=== PATIENT | male | born 1940 | race Caucasian/White ===

== ENCOUNTER 2020-02-21 01:59 | Emergency (ER) | payer MEDICARE, OTHER ==
[2020-02-21] MEDS ORDERED: Sodium Chloride 0.9% 10 ML Syringe FLUSH PRN (02:21)
[2020-02-21] MEDS ORDERED: Morphine 4 MG/ML Syringe IVPUSH ONE (02:21)
[2020-02-21 03:10] VITALS: BP 120/66
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
[2020-02-21 03:50] VITALS: PULSE 64
--- NOTE | 2020-02-21 09:16 | CR ---
CHEST: Portable 02/21/2020 at 2:33 AM COMPARISON:None FINDINGS: There are acute left rib fractures. These are so described on CT. There is elevation of the right hemidiaphragm which is likely chronic. Heart size and pulmonary vascularity are normal. There are atherosclerotic changes in the aorta. No infiltrate effusion or pneumothorax. Impression: Acute left mid rib fractures Chronic elevation right hemidiaphragm
== END 2020-02-21 05:01 | disposition home or self-care (01) ==
LOC: JP.ED 01:59
DX: S22.42XA Multiple fractures of ribs, left side, initial encounter for closed fracture (principal); S40.812A Abrasion of left upper arm, initial encounter; I12.9 Hypertensive chronic kidney disease with stage 1 through stage 4 chronic kidney disease, or unspecified chronic kidney disease; N18.4 Chronic kidney disease, stage 4 (severe); E78.00 Pure hypercholesterolemia, unspecified; F17.210 Nicotine dependence, cigarettes, uncomplicated; Z79.82 Long term (current) use of aspirin; Z79.899 Other long term (current) drug therapy; W23.0XXA Caught, crushed, jammed, or pinched between moving objects, initial encounter
CPT/HCPCS: 36415; 71045; 71250; 74176; 80053; 81001; 85025; 96374; 99284; J2270

== ENCOUNTER 2020-02-22 10:09 | Emergency (ER) | payer BC, MEDICARE ==
[2020-02-22] MEDS ORDERED: fentaNYL 100 MCG/2 ML SDV IVPUSH ONE (12:15)
[2020-02-22] MEDS ORDERED: Sodium Chloride 0.9% 1,000 ML IV SCH (12:15)
[2020-02-22] MEDS ORDERED: Ondansetron 4 MG/2 ML SDV IVPUSH ONE (12:15)
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
--- NOTE | 2020-02-22 13:21 | CRLCR ---
INDICATION: History of mild left-sided pneumothorax, and a refracture. COMPARISON: CT dated 02/21/2020. TECHNIQUE: Two views of the chest. FINDINGS: Stable cardiac and mediastinal contours. Elevation of the right hemidiaphragm, and blunting of the right costophrenic angle is redemonstrated. Biapical pleural parenchymal scarring and/or thickening re- demonstrated. No definite pleural effusion or pneumothorax on the left. Status post aortic repair with stent graft. Previous rib fractures. IMPRESSION: No definite left-sided pneumothorax. Dictated by Bran Gilliland MD @ Feb 22 2020 1:05PM (Electronically Signed)
[2020-02-22 15:13] VITALS: BP 141/60; PULSE 67
== END 2020-02-22 15:49 ==
LOC: JP.ED 10:09
DX: S22.42XA Multiple fractures of ribs, left side, initial encounter for closed fracture (principal); E78.00 Pure hypercholesterolemia, unspecified; I25.10 Atherosclerotic heart disease of native coronary artery without angina pectoris; I12.9 Hypertensive chronic kidney disease with stage 1 through stage 4 chronic kidney disease, or unspecified chronic kidney disease; N18.9 Chronic kidney disease, unspecified; F17.210 Nicotine dependence, cigarettes, uncomplicated; Z95.5 Presence of coronary angioplasty implant and graft; Z79.82 Long term (current) use of aspirin; Z79.899 Other long term (current) drug therapy; Z20.828 Contact with and (suspected) exposure to other viral communicable diseases; X58.XXXA Exposure to other specified factors, initial encounter
CPT/HCPCS: 36415; 71046; 82803; 83605; 85025; 96374; 96375; 99285; J2405; J3010; J7030; U0002